=== PATIENT | male | born 2005 | race Caucasian/White ===

== ENCOUNTER 2024-07-15 03:59 | Emergency (ER) | payer OTHER, SELFPAY ==
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
--- NOTE | 2024-07-15 04:00 | PC.NURSE ---
COUNTY OFFICER AT THE BEDSIDE
[2024-07-15 04:02] VITALS: BP 144/78; PULSE 130; RESP 18; TEMP 36.4; O2SAT 96
--- NOTE | 2024-07-15 04:07 | PC.NURSE ---
DR ROYAL AT THE BEDSIDE.
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
--- OUTSIDE RECORDS SUMMARY | 2024-07-15 04:20 | XMS_ITS | Encounter Summary ---
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
--- OUTSIDE RECORDS SUMMARY | 2024-07-15 04:20 | XMS_ITS | Clinical Summary ---
Author Organization [facility] Address [address] [place] [address] Phone Care Team Providers Care Logistics Account Manager Name Role Phone Montana Rodriguez MD Primary Care Provider [phone] Allergies No known active allergies Medications No known medications Social History Tobacco Use Types Packs/Day Years Used Date Smoking Tobacco: Never Assessed Sex and Gender Information Value Date Recorded Sex Assigned at Not on file Legal Sex Male 6:52 PM CDT Gender Identity Not on file Sexual Orientation Not on file Last Filed Vital Signs Vital Sign Reading Time Taken Comments Blood Pressure 134/81 01/05/2020 10:34 PM CDT Pulse 63 01/05/2020 10:34 PM CDT Temperature 36.8 C (98.3 F) 01/05/2020 10:34 PM CDT Respiratory Rate 18 01/05/2020 10:34 PM CDT Oxygen Saturation 96% 01/05/2020 10:34 PM CDT Inhaled Oxygen Concentration - - Weight - - Height - - Body Mass Index - - Plan of Treatment Health Maintenance Due Date Last Done Comments CHLAMYDIA SCREENING (ANNUAL) 11-24 YEARS 11/05/2014 HPV VACCINES (1 - Male 3-dose series) 11/05/2018 DTAP/TDAP/TD VACCINES (1 - Tdap) 11/05/2022 HEPATITIS B VACCINES (1 of 3 - 19+ 3-dose series) 10/11 INFLUENZA VACCINE (#1) 2023 [place] [id number] [place]ESS/TRUE BLUE PPO Care Teams Logistics Account Manager Relationship Specialty Start Date End Date Montana Rodriguez MD [address] [place] [phone] PCP - General Family Practice 01/05/20
--- OUTSIDE RECORDS SUMMARY | 2024-07-15 04:20 | XMS_ITS | Clinical Summary ---
Author Organization [facility] Address [address] [place] [address] Care Team Providers Care Atm Manager Name Role Phone Montana Rodriguez MD Primary Care Provider [phone] Allergies No known active allergies Medications montelukast 10 MG tablet Take 10 mg by mouth nightly at bedtime. Active fluticasone propionate 50 MCG/ACT nasal spray 1 spray by Nasal route daily. Active albuterol 1.25 MG/3ML nebulizer solution Take 1 ampule by nebulization every 6 (six) hours as needed for Wheezing. Active albuterol sulfate HFA 108 (90 Base) MCG/ACT inhaler Inhale 2 puffs into the lungs every 6 (six) hours as needed for Wheezing. 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 Gender Identity Not on file Sexual Orientation Not on file Last Filed Vital Signs Vital Sign Reading Time Taken Comments Blood Pressure 108/64 07/07/2019 2:45 PM CDT Pulse 85 07/07/2019 2:45 PM CDT Temperature 36.6 C (97.9 F) 07/07/2019 2:45 PM CDT Respiratory Rate 16 07/07/2019 2:45 PM CDT Oxygen Saturation 100% 07/07/2019 2:45 PM CDT Inhaled Oxygen Concentration - - Weight 59 kg (130 lb) 07/07/2019 2:45 PM CDT Height 172.7 cm (5' 8 ) 07/07/2019 2:45 PM CDT Body Mass Index 19.77 07/07/2019 2:45 PM CDT Plan of Treatment Health Maintenance Due Date Last Done Comments Annual Physical 11/05/2006 DTaP, Tdap and Td Vaccines (6 - Tdap) 11/05/2014 10/19/2008, 03/20/2005, 07/05/2004, Additional history exists HPV Vaccines (1 - Male 3-dose series) 11/05/2018 Meningococcal B Vaccine (1 of 2 - Standard) 2019 Hepatitis C 11/05/2021 Hepatitis B Vaccines (1 of 3 - 19+ 3-dose series) 11/05/2022 COVID-19 Vaccine (1 - season) 2023 Meningococcal Vaccine Aged Out 02/10/2015 No randy eder eligible based on patient's age to complete this topic Pneumococcal Vaccine: Pediatrics (0 to 5 Years) and At-Risk Patients (6 to 49 Years) Aged Out No longer eligible based on patient's age to complete this topic RSV Immunizations Under 20 Months Aged Out No longer eligible based on patient's age to complete this topic Insurance MEDICAID Member Subscriber Plan / Payer (Ef fective 2018-Present) Name:Greg Barrera Relation to Subscriber:Self Name:Greg Barrera Payer ID:Not on file Group ID:Not on file Type:Not on file [address] Care Teams Atm Manager Relationship Specialty Start Date End Date Montana Rodriguez MD [address] [place] [address] PCP - General FAMILY PRACTICE 10/26/18
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
[2024-07-15 04:30] VITALS: BP 116/77; PULSE 110; RESP 21; O2SAT 98
--- NOTE | 2024-07-15 04:40 | PC.NURSE ---
XRAY AT THE BEDSIDE
[2024-07-15 04:43] VITALS: BP 121/76; PULSE 116; RESP 23; O2SAT 96
[2024-07-15 04:45] VITALS: BP 113/73; PULSE 108; RESP 24; O2SAT 98
[2024-07-15 04:53] VITALS: BP 113/73; PULSE 116; RESP 22; O2SAT 100
--- NOTE | 2024-07-15 05:02 | PC.NURSE ---
ADDITIONAL INFORMATION ON CHART THAT WAS NOT COMPLETED WHEN PATIENT LEFT HAS BEEN FAXED TO CHARGE NURSE, MICHAEL RUBIO AT [facility] ED. CURRENTLY WAITING ON CXR RESULT AND WILL FAX SOON OBTAINED
== END 2024-07-15 04:53 | disposition short-term general hospital (02) ==
PROVIDERS: Emergency Provider Emergency Medicine; PCP Family Medicine
DX: R41.82 Altered mental status, unspecified (principal); V48.5XXA Car driver injured in noncollision transport accident in traffic accident, initial encounter
CPT/HCPCS: 71045; 99285